=== PATIENT | male | born 1975 | race Caucasian/White ===

== ENCOUNTER 2016-12-21 18:39 | Emergency (ER) | payer SELFPAY ==
[~2016-12-21] VITALS: Ht 177.8 cm; Wt 81.8 kg
[2016-12-21] MEDS ORDERED: KETOROLAC 30 MG/ML (TORADOL) 1 ML VIAL IV ONE (20:15)
[2016-12-21 20:19] LABS: BASOPHILS % (AUTO) 0 % (0-2); EOSINOPHILS # (AUTO) 0.1 10^3uL; EOSINOPHILS % (AUTO) 1 % (0-4); MEAN CORPUSCULAR VOLUME 88 FL (80-100); MEAN PLATELET VOLUME 11.6 FL (6.0-9.5); MONOCYTES % (AUTO) 10 % (3-11); NEUTROPHILS # (AUTO) 7.4 X10^3; NEUTROPHILS % (AUTO) 70 % (51-67); PLATELET COUNT 100 10^3uL (150-450); WHITE BLOOD COUNT 10.48 10^3uL (4.0-11.0)
[2016-12-21 20:20] LABS: MEAN CORPUSCULAR HEMOGLOBIN 31.3 PG (26.0-34.0); MEAN CORPUSCULAR HGB CONC 35.7 g/dL (31.0-37.0)
[2016-12-21 20:27] LABS: ALBUMIN 4.1 g/dL (3.4-5.0); ANION GAP 12.3 MEQ/L (3-15); CALCULATED IONIZED CALCIUM 3.7 mg/dL (3.8-4.6); TOTAL PROTEIN 8.3 g/dL (6.4-8.5)
[2016-12-21 20:35] LABS: CLARITY,URINE Cloudy; GLUCOSE, URINE (UA) Trace (Negative); LEUKOCYTE ESTERASE ,URINE Negative (Negative); UROBILINOGEN,URINE 0.2 mg/dL (0.2-1.0)
[2016-12-21 21:00] LABS: BILIRUBIN,URINE 1+ (Negative); COLOR,URINE Dark Yellow
[2016-12-21 21:10] LABS: RBC,URINE >100 /HPF; URINE CENTRIFUGED VOLUME 12 mL
[2016-12-21 21:11] LABS: CALCIUM OXALATE CRYSTALS,UR 3+ /HPF
[2016-12-21] MEDS ORDERED: ED- SULFAMETHOXAZOLE/TRIMETHOPRIM 800-160 MG (SEPTRA DS) 6 TABLETS/BTL PO ONE (21:55)
--- NOTE | 2016-12-21 22:10 | NUR ---
Pt has no local dr, so pt was told that we would try and have the US study report sent to DR. Godwin, and that he should call [email or web address] Godwin's office for follow up on his US of the Gall Bladder to see if he needs any further eval done on it.
[2016-12-21 22:14] VITALS: BP 164/90
== END 2016-12-21 22:16 | disposition home or self-care (01) ==
LOC: ED 18:40
DX: K85.90 Acute pancreatitis without necrosis or infection, unspecified (principal); N39.0 Urinary tract infection, site not specified
CPT/HCPCS: 36415; 80053; 81003; 81015; 83690; 85025; 87088; 96361; 96374; 99284; J1885; J7030; 99283

== ENCOUNTER → 2016-12-22 | Outpatient (CLI) | payer SELFPAY | LOC: RAD 07:18 | PROVIDERS: ATTEND Emergency Medicine | DX: K85.90 Acute pancreatitis without necrosis or infection, unspecified (principal); N39.0 Urinary tract infection, site not specified; N13.30 Unspecified hydronephrosis | CPT/HCPCS: 76705 ==